=== PATIENT | female | born 1995 | race Two or more races ===

== ENCOUNTER 2023-07-02 16:46 | Observation (INO) | payer MEDICAID, OTHER ==
[2023-07-02] MEDS ORDERED: PREN-96 PO (17:31)
== END 2023-07-02 17:47 | disposition home or self-care (01) ==
LOC: LDRP 16:46
PROVIDERS: ADMIT Obstetrics & Gynecology; ATTEND Obstetrics & Gynecology
DX: O46.93 Antepartum hemorrhage, unspecified, third trimester (principal); O26.853 Spotting complicating pregnancy, third trimester; Z3A.30 30 weeks gestation of pregnancy
CPT/HCPCS: 59025; 81002; G0378

== ENCOUNTER 2023-08-16 00:14 | Emergency (ER) | payer MEDICAID ==
[~2023-08-16] VITALS: Ht 165.1 cm; Wt 105.2 kg
[~2023-08-16 00:14] MED LIST: PREN-96 PO
[2023-08-16 00:18] VITALS: BP 116/71; RESP 16; TEMP 98; O2SAT 99
[2023-08-16 00:41] LABS: Basophils # (auto) 0 10 ^3/uL (0-0.2); Basophils % (auto) 0.5 % (0.0-2.0); Eosinophils # (auto) 0.6 10 ^3/uL (0-0.8); Eosinophils % (auto) 6.3 % (0.0-7.0); Hematocrit 32.4 % (36.0-46.0); Hemoglobin 10.7 g/dL (12.2-16.2); Lymphocytes # (auto) 2.4 10 ^3/uL (0.4-5.4); Lymphocytes % (auto) 25.3 % (10.0-50.0); Mean Corpuscular Hemoglobin 29.3 pg (28.0-32.0); Mean Corpuscular Volume 88.8 fL (80.0-100.0); Monocytes # (auto) 1.2 10 ^3/uL (0-1.3); Monocytes % (auto) 12.2 % (0.0-12.0); Neutrophils # (auto) 5.3 10 ^3/uL (1.6-8.6); Neutrophils % (auto) 55.7 % (37.0-80.0); Red Blood Cells 3.65 10^6/uL (4.0-5.20); Red Cell Distribution Width 14.4 % (11.8-14.3); White Blood Cell 9.5 10^3/uL (4.4-10.8)
[2023-08-16 01:07] LABS: Urine Bacteria None Seen /hpf (None Seen)
[2023-08-16 01:14] LABS: Urine Blood Negative /uL (Negative); Urine Clarity Clear (Clear); Urine Color Light-Yellow (Yellow); Urine Protein, UAD Negative (Negative); Urine Specific Gravity 1.003 (1.001-1.035); Urine Urobilinogen Normal (Negative); Urine WBC <1 /hpf (0 - 5)
[2023-08-16] MEDS: ACETAMINOPHEN 500 MG TAB PO ONE (01:15)
[2023-08-16 01:17] VITALS: PULSE 73
[2023-08-16 01:28] LABS: Alanine Aminotransferase 20 U/L (7-40); Albumin 3.8 g/dL (3.2-4.8); Alkaline Phosphatase 161 U/L (46-116); Anion Gap 7 (5-15); Aspartate Aminotransferase 21 U/L (13-40); BUN/Creatinine Ratio 10.6 (10.0-20.0); Bilirubin, Total 0.2 mg/dL (0.2-1.0); Blood Urea Nitrogen < 5 mg/dL (9-23); Calcium 9.6 mg/dL (8.7-10.4); Carbon Dioxide 23 mmol/L (20-30); Chloride 107 mmol/L (98-107); Glucose 88 mg/dL (74-106); Potassium 3.9 mmol/L (3.5-5.1); Sodium 137 mmol/L (136-145); Total Protein 6.4 g/dL (5.7-8.2)
[2023-08-16] MEDS ORDERED: CALC500C3 PO (02:46)
[2023-08-16] MEDS ORDERED: ACET500T58 PO (02:46)
== END 2023-08-16 03:20 | disposition home or self-care (01) ==
LOC: ER 00:14
DX: O26.893 Other specified pregnancy related conditions, third trimester (principal); R10.2 Pelvic and perineal pain; R07.89 Other chest pain; K21.9 Gastro-esophageal reflux disease without esophagitis; Z3A.37 37 weeks gestation of pregnancy
CPT/HCPCS: 36415; 76815; 80053; 81001; 84484; 84702; 85025; 93005

== ENCOUNTER 2023-09-05 08:05 | Inpatient (IN) | payer MEDICAID ==
[~2023-09-05] VITALS: Ht 165.1 cm; Wt 108.9 kg
[~2023-09-05 08:05] MED LIST changes: +ACET500T58 PO; +CALC500C3 PO
[2023-09-05] MEDS ORDERED: BUTORPHANOL TARTRATE 2 MG/1 ML VIAL IV PRN ×2 (16:15)
[2023-09-05] MEDS ORDERED: LIDOCAINE 2%HCL (LOCAL ANESTH.) INJ 20ML MDV IJ PRN (16:15)
[2023-09-05 17:06] LABS: Basophils # (auto) 0 10 ^3/uL (0-0.2); Basophils % (auto) 0.2 % (0.0-2.0); Eosinophils # (auto) 0.3 10 ^3/uL (0-0.8); Eosinophils % (auto) 2.8 % (0.0-7.0); Hematocrit 33.8 % (36.0-46.0); Hemoglobin 11.1 g/dL (12.2-16.2); Lymphocytes # (auto) 1.9 10 ^3/uL (0.4-5.4); Lymphocytes % (auto) 19.6 % (10.0-50.0); Mean Corpuscular Hemoglobin 29.3 pg (28.0-32.0); Mean Corpuscular Hgb Conc. 32.8 g/dL (32.0-36.0); Mean Corpuscular Volume 89.2 fL (80.0-100.0); Monocytes % (auto) 10.4 % (0.0-12.0); Neutrophils # (auto) 6.5 10 ^3/uL (1.6-8.6); Red Blood Cells 3.79 10^6/uL (4.0-5.20); Red Cell Distribution Width 15.1 % (11.8-14.3); White Blood Cell 9.8 10^3/uL (4.4-10.8)
[2023-09-05 17:20] LABS: INR 0.96 (0.9-1.15); Partial Thromboplastin Time 28.2 SEC (24.5-34.5); Prothrombin Time 10.2 sec (9.3-11.8)
[2023-09-05 17:27] LABS: Alanine Aminotransferase 17 U/L (7-40); Albumin 3.8 g/dL (3.2-4.8); Alkaline Phosphatase 193 U/L (46-116); Anion Gap 6 (5-15); Aspartate Aminotransferase 14 U/L (13-40); Bilirubin, Total 0.2 mg/dL (0.2-1.0); Calcium 8.9 mg/dL (8.5-10.1); Carbon Dioxide 22 mmol/L (20-30); Chloride 110 mmol/L (98-107); Glucose 82 mg/dL (74-106); Potassium 3.9 mmol/L (3.5-5.1); Sodium 138 mmol/L (136-145)
[2023-09-05 17:28] LABS: BUN/Creatinine Ratio 10.2 (10.0-20.0); Blood Urea Nitrogen < 5 mg/dL (9-23); Total Protein 6.2 g/dL (5.7-8.2)
[2023-09-05] MEDS: PENICILLIN G POT 5MIL/D5 50ML 50 ML IV ONE (17:42)
[2023-09-05] MEDS: miSOPROStol 50 MCG per PRE-CUT 1/2 TAB PO PRN (17:42)
[2023-09-05 18:11] LABS: Urine Bacteria FEW /hpf (None Seen); Urine Blood Negative /uL (Negative); Urine Budding Yeast OCCASIONAL /hpf (None Seen); Urine Clarity Clear (Clear); Urine Color Yellow (Yellow); Urine Mucus FEW (None Seen); Urine Protein, UAD TRACE (Negative); Urine Urobilinogen Normal (Negative); Urine WBC 4 /hpf (0 - 5); Urine pH 6.5 (5.0-9.0)
[2023-09-05 18:21] LABS: Amphetamine Screen, Urine Neg (NEGATIVE); Barbiturate Scree,Urine Neg (NEGATIVE); Benzodiazephine Screen, Urine Neg (NEGATIVE); Cannabinoid Screen, Urine Neg (NEGATIVE); Cocaine Screen, Urine Neg (NEGATIVE); Opiate Scree,Urine Neg (NEGATIVE); Phencyclidine Screen, Urine Neg (NEGATIVE)
[2023-09-05] MEDS: DERMOPLAST 60ML BOTTLE TOP PRN (18:59)
[2023-09-05] MEDS: PHISODERM TOP SOLN 240ML BTL TOP PRN (18:59)
[2023-09-05] MEDS: WITCH HAZEL-GLYCERIN PAD TOP PRN (18:59)
[2023-09-05] MEDS ORDERED: miSOPROStol 100 mcg TAB PR PRN (19:30)
[2023-09-05] MEDS ORDERED: miSOPROStol 100 mcg TAB SL PRN (19:30)
[2023-09-05] MEDS: LACTATED RINGER'S 1,000 ML IV SCH (20:21)
[2023-09-05] MEDS: PENICILLIN G POTASSIUM 2,500,000 UNITS in D5W 5% 50 ML IV SCH (21:43)
[2023-09-06] MEDS ORDERED: TERBUTALINE SULFATE 1 MG/ML 1ML VIAL SC PRN (02:00)
[2023-09-06] MEDS: LACT. RINGERS/OXYTOCIN 20UNITS 1,000 ML IV SCH (02:21)
[2023-09-06] MEDS: LIDOCAINE HCL 2 %PF INJ 10ML AMP IJ ONE (05:15)
[2023-09-06] MEDS: LACTATED RINGER'S 1,000 ML IV ONE (06:00)
[2023-09-06] MEDS: ROPIVACAINE HCL 200 ML ONE (06:19)
[2023-09-06] MEDS: fentaNYL CITRATE 100 MCG/2 ML VL IV ONE (06:24)
[2023-09-06] MEDS: LACT. RINGERS/OXYTOCIN 20UNITS 500 ML IV ONE ×2 (07:41)
[2023-09-06] MEDS ORDERED: TRANEXAMIC ACID 1,000 MG in SODIUM CHL 0.9% 100 ML IV ONE (07:45)
[2023-09-06] MEDS: NALOXONE HCL 0.4 MG/ML VIAL IV ONE (08:00)
[2023-09-06] MEDS: ePHEDrine SULFATE 50 MG/ML AMP IV ONE (08:00)
[2023-09-06] MEDS ORDERED: ONDANSETRON ODT 4 MG TAB PO PRN (08:15)
[2023-09-06] MEDS ORDERED: ACETAMINOPHEN 325 MG TAB PO PRN (08:15)
[2023-09-06] MEDS: METHYLERGONOVINE MALEATE 0.2 MG/ML AMP IM PRN (08:26)
[2023-09-06 15:00] VITALS: BP 113/56; PULSE 99; RESP 16; TEMP 98.3; O2SAT 97
[2023-09-06] MEDS: IBUPROFEN 600 MG TAB PO PRN (15:55)
[2023-09-06 19:15] VITALS: BP 106/58; PULSE 84; RESP 18; TEMP 98.4; O2SAT 97
[2023-09-06 23:00] VITALS: BP 115/62; PULSE 85; RESP 16; TEMP 98.2; O2SAT 96
[2023-09-07 03:05] VITALS: BP 110/70; PULSE 81; RESP 17; TEMP 98.8; O2SAT 97
[2023-09-07 06:06] LABS: RPR Non Reactive (Non Reactive)
[2023-09-07 07:13] VITALS: BP 109/59; PULSE 95; RESP 18; TEMP 98; O2SAT 18
[2023-09-07 11:00] VITALS: BP 103/58; PULSE 92; RESP 20; TEMP 98.1; O2SAT 97
[2023-09-09 19:06] LABS: Treponema pallidum Ab (FTA-Ab) Non Reactive (Non Reactive)
== END 2023-09-07 12:34 | disposition home or self-care (01) | DRG 560 ==
LOC: LDRP 12:55 → OBSVTOIN 15:22 → LDRP 15:23
PROVIDERS: ADMIT Obstetrics & Gynecology; ATTEND Obstetrics & Gynecology
PROC: 10E0XZZ Delivery of Products of Conception, External Approach (ICD-10-PCS; principal; 2023-09-06)
PROC: 3E0DXGC Introduction of Other Therapeutic Substance into Mouth and Pharynx, External Approach (ICD-10-PCS; 2023-09-06)
PROC: 0HQ9XZZ Repair Perineum Skin, External Approach (ICD-10-PCS; 2023-09-06)
PROC: 3E0R3BZ Introduction of Anesthetic Agent into Spinal Canal, Percutaneous Approach (ICD-10-PCS; 2023-09-06)
PROC: 00HU33Z Insertion of Infusion Device into Spinal Canal, Percutaneous Approach (ICD-10-PCS; 2023-09-06)
DX: O99.824 Streptococcus B carrier state complicating childbirth (principal); Z37.0 Single live birth; O70.0 First degree perineal laceration during delivery; Z3A.40 40 weeks gestation of pregnancy
CPT/HCPCS: 36415; 59025; 59409; 62282; 76818; 80053; 80307; 81001; 81002; 85025; 85610; 85730; 86592; 86803; 86850; 86900; 86901; 94760; 94762; 96360; 96361; 96365; 96366; G0378; J2540; J2590; J7060